=== PATIENT | female | born 1985 ===

== ENCOUNTER 2016-12-06 15:59 | Outpatient (RCR) | payer BC | END 2016-12-19 | disposition home or self-care (01) | LOC: PTY 15:59 | DX: G56.00 Carpal tunnel syndrome, unspecified upper limb (principal) ==

== ENCOUNTER 2016-12-23 15:57 | Outpatient (RCR) | payer BC | END 2017-01-19 | disposition home or self-care (01) | LOC: PTY 15:57 | DX: G56.00 Carpal tunnel syndrome, unspecified upper limb (principal) ==